=== PATIENT | male | born 1940 | race Hispanic/Latino ===

== ENCOUNTER 2018-01-07 06:16 | Emergency (ER) | payer SELFPAY ==
[2018-01-07] MEDS ORDERED: Lidocaine Viscous Sol 2% 15 ml UD Cup ONE (06:55)
[2018-01-07 07:12] LABS: #Eosinphils 0.1 thou/uL (0.0-0.7); #Lymphocytes 2.4 thou/uL (1.20-3.40); #Monocytes 0.6 thou/uL (0.11-0.59); #Neutrophils 11.5 thou/uL (1.40-6.50); %Basophils 0.3 % (0.0-1.0); %Eosinophils 0.8 % (0.0-10.0); %Lymphocytes 16.5 % (21.0-51.0); %Neutrophils 78.4 % (42.0-75.0); Hemoglobin 14.1 g/dL (14.0-18.0); Mean Corpuscular HGB CONC 31.2 g/dL (32.0-36.0); Mean Corpuscular Hemoglobin 30.7 pg (27.0-31.0); Mean Corpuscular Volume 98.5 fL (78.0-98.0); Mean Platelet Volume 7.2 fL (7.4-10.4); Platelet Count 365 thou/uL (130-400); RBC Distribution Width 12.6 % (11.5-14.5); Red Blood Cell (RBC) Count 4.59 mill/uL (4.70-6.10); White Blood Cell (WBC) Count 14.7 thou/uL (4.8-10.8)
[2018-01-07 07:33] LABS: ALT (SGPT) 39 U/L (8-55); AST (SGOT) 24 U/L (5-34); Albumin 4.1 g/dL (3.4-4.8); Alkaline Phosphatase 146 U/L (40-150); Anion Gap 15 mmol/L (10-20); BUN (Urea Nitrogen) 46 mg/dL (8.4-25.7); Bilirubin, Total 0.3 mg/dL (0.2-1.2); Calc. Creatinine Clearance 0 mL/min (70-130); Calcium 9.2 mg/dL (7.8-10.44); Carbon Dioxide 22 mmol/L (23-31); Chloride 106 mmol/L (98-107); Estimated GFR-MDRD 37; Globulin 3.8 g/dL (2.4-3.5); Glucose 103 mg/dL (83-110); Potassium 4.4 mmol/L (3.5-5.1); Protein, Total 7.9 g/dL (5.8-8.1); Sodium 139 mmol/L (136-145)
[2018-01-07] MEDS ORDERED: Lorazepam 1 MG TAB ONE ×2 (08:10→08:24)
[2018-01-07 09:03] LABS: Bilirubin Negative (Negative); Blood, Urine Large (Negative); Clarity CLOUDY (Clear); Glucose, Urine (Dipstick) Negative (Negative); Leukocyte Moderate (Negative); Nitrite Negative (Negative); Protein, Urine (Dipstick) 100 mg/dL (Neg-Trace); Urobilinogen 0.2 mg/dL (0.2-1.0)
[2018-01-07 09:05] LABS: Hyaline Casts/LPF 7-10 HYALINE CAST LPF (0-3 Hyaline)
[2018-01-07 09:07] LABS: Yeast-AUWi Flag 135.4 (0-25.0)
[2018-01-07 09:15] LABS: RBC/HPF GREATER THAN 50-TNTC HPF (0-3)
[2018-01-07 09:16] LABS: Bacteria/HPF None Seen HPF (None Seen); Yeast-All Forms Rare HPF (None Seen)
--- NOTE | 2018-01-08 18:33 | CON ---
DATE OF CONSULTATION: 01/07/2018 REASON FOR CONSULTATION: Urinary retention and difficult Burdick catheter placement. HISTORY OF PRESENT ILLNESS: Mr. Erika Gómez is a 77-year-old male who presented to the [facility] Emergency Department for voiding difficulty. The patient is from [place] and has had multiple urologi c procedures in the past. With the assistance of a gas combustion engineer, history was gathered from the patient and the family. He denies history of prostate cancer, but states he has had 3 or 4 prostate surgeri es in the past. It is unclear exactly what surgery he had. Over the past 18 hours, the patient has had progressive voiding difficulty. He is unable to void at all currently. He is very uncomfortable . Multiple attempts at Burdick catheter placement by the nursing staff and ER physician were unsuccess ful. Urology was consulted for further evaluation. Currently, the patient is in significant pain. No nausea or vomiting. He does not take anticoagulan ts. No other complaints. REVIEW OF SYSTEMS: Full 12-point review of systems was performed and is negative other than that men tioned in the HPI. PAST MEDICAL HISTORY: Hypertension, BPH, unknown cardiac surgery likely related to coronary artery d isease. PAST SURGICAL HISTORY: Multiple urologic procedures. SOCIAL HISTORY: No alcohol, tobacco, or drugs. FAMILY HISTORY: Noncontributory. MEDICATIONS: No home medications. ALLERGIES: No known drug allergies. PHYSICAL EXAMINATION: VITAL SIGNS: See chart record, stable. GENERAL: Alert and oriented x3, no apparent distress. HEENT: Normocephalic, atraumatic. CARDIOVASCULAR: Regular rate and rhythm. PULMONARY: Breathing unlabored. ABDOMEN: Soft, mildly distended in the low abdomen. Positive suprapubic tenderness to palpation. N o rebound or guarding. Low midline scar down to the pubic symphysis. No CVA tenderness. GENITOURINARY: Uncircumcised penis without concerning lesion, blood present at the meatus. Scrotum and testes are palpably normal. EXTREMITIES: Warm and well perfused. No edema. NEUROLOGIC: No focal deficits. ASSESSMENT: A 77-year-old male with urinary retention and difficult Burdick catheter placement. PLAN: The patient was evaluated at the bedside. Attempt at placing a coude catheter was unsuccessfu l. Under sterile conditions, an angled-tip Glidewire was advanced; however, this was curling within the patient's urethra. At this point, a Sensor wire was placed and this also was curling within the patient's urethra. One additional wire was attempted, which was a PTFE wire. The PTFE wire was adva nced with minimal resistance and curled within the bladder. Upon placement of this wire, some urine did emanate from the patient's urethra. The other two wires which essentially served as filiforms we re removed. Lena dilators were used to serially dilate the urethra from 12-Romansh to 20-Romansh. 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 With each passage of the dilator, clear uri ne was drained. An 18-Romansh Councill catheter was then placed over the wire successfully and 10 mL of sterile water was placed in the balloon. Wire was removed. Approximately 600 mL of urine was claudio shae from the bladder immediately. I explained to the patient through the sap bw developer and to the patient's son that he will need to have this Burdick catheter in place for 5-7 days. He should call my office for followup for voiding trial. Prophylactic antibiotics will be prescribed by the ED physician. Thank you for allowing me to participate in the care of this patient.
== END 2018-01-07 09:20 | disposition home or self-care (01) ==
LOC: ERS 06:16
DX: R33.9 Retention of urine, unspecified (principal); I10 Essential (primary) hypertension
CPT/HCPCS: 36415; 51702; 80053; 81003; 85025; C1769